=== PATIENT | female | born 1995 | race Caucasian/White ===

== ENCOUNTER 2017-07-18 18:05 | Emergency (ER) | payer OTHER ==
[~2017-07-18] VITALS: Ht 160 cm; Wt 68.0 kg
[2017-07-18 18:22] VITALS: Ht 160 cm; Wt 68.0 kg
[2017-07-18] MEDS ORDERED: SODIUM CHLORIDE 0.9% 1000ML 1,000 ML IV STA (18:35)
--- NOTE | 2017-07-18 18:38 | EMERGENCY ROOM VISIT NOTE ---
History Report prepared by Jhony: Harman Lofton Under the Supervision of: Dr. Rangel Kwong M.D. First contact with patient: 18:28 Chief Complaint: ABDOMINAL PAIN Stated Complaint: LOWER RT QUAD/PELVIC PAIN History of Present Illness The patient is a 22 year old female who presents to the Emergency Room with complaints of worsening stabbing right sided abdominal pain that started 3 days ago. The patient saw her PCP yesterday. She complains of a cough. She denies fevers, chills, congestion, diarrhea, hematuria, dysuria, and nausea. Of note, her LNMP was several months ago and currently has an IUD. Source of History: patient Onset: 3 days ago Position: abdomen (RLQ) Quality: stabbing Timing: worsening Associated Symptoms: + cough, No fevers, No chills, No diarrhea, No urinary symptoms Note: Patient denies congestion. Review of Systems See HPI for pertinent positives and negatives. A total of ten systems were reviewed and were otherwise negative. Social History Smoking Status: Never Smoker Marital Status: in relationship Occupation Status: student Current/Historical Medications No Active Prescriptions or Reported Meds Allergies Coded Allergies: Penicillins (Verified Allergy, Intermediate, Rash, 07/18/17) Physical Exam Vital Signs Date Time Temp Pulse Resp B/P (MAP) Pulse Ox O2 Delivery O2 Flow Rate FiO2 07/18/17 22:05 72 14 120/54 100 Room Air 07/18/17 19:16 70 07/18/17 18:57 37.0 07/18/17 18:22 37.8 72 20 116/71 100 Room Air Physical Exam GENERAL: Awake, alert, well-appearing, in no distress HENT: Normocephalic, atraumatic. Oropharynx unremarkable. EYES: Normal conjunctiva. Sclera non-icteric. NECK: Supple. No nuchal rigidity. FROM. No JVD. RESPIRATORY: Clear to auscultation. CARDIAC: Regular rate, normal rhythm. Extremities warm and well perfused. Pulses equal. ABDOMEN: Soft, non-distended. Mild right upper quadrant and lower quadrant tenderness. No rebound or guarding. No masses. No peritoneal signs. RECTAL: Deferred. MUSCULOSKELETAL: Chest examination reveals no tenderness. The back is symmetrical on inspection without obvious abnormality. There is no CVA tenderness to palpation. No joint edema. LOWER EXTREMITIES: Calves are equal size bilaterally and non-tender. No edema. No discoloration. NEURO: Normal sensorium. No sensory or motor deficits noted. SKIN: No rash or jaundice noted. Medical Decision & Procedures Laboratory Results 07/18/17 18:55 Red Blood Count 4.58, Mean Corpuscular Volume 92.8, Mean Corpuscular Hemoglobin 31.9, Mean Corpuscular Hemoglobin Concent 34.4, Mean Platelet Volume 9.3, Neutrophils (%) (Auto) 63.4, Lymphocytes (%) (Auto) 30.3, Monocytes (%) (Auto) 5.0, Eosinophils (%) (Auto) 0.7, Basophils (%) (Auto) 0.3, Neutrophils # (Auto) 4.81, Lymphocytes # (Auto) 2.30, Monocytes # (Auto) 0.38, Eosinophils # (Auto) 0.05, Basophils # (Auto) 0.02 07/18/17 18:55 Test 07/18/17 18:55 White Blood Count 7.58 K/uL (4.8-10.8) Red Blood Count 4.58 M/uL (4.2-5.4) Hemoglobin 14.6 g/dL (12.0-16.0) Hematocrit 42.5 % (37-47) Mean Corpuscular Volume 92.8 fL (80-100) Mean Corpuscular Hemoglobin 31.9 pg (25-34) Mean Corpuscular Hemoglobin Concent 34.4 g/dl (32-36) Platelet Count 242 K/uL (130-400) Mean Platelet Volume 9.3 fL (7.4-10.4) Neutrophils (%) (Auto) 63.4 % Lymphocytes (%) (Auto) 30.3 % Monocytes (%) (Auto) 5.0 % Eosinophils (%) (Auto) 0.7 % Basophils (%) (Auto) 0.3 % Neutrophils # (Auto) 4.81 K/uL (1.4-6.5) Lymphocytes # (Auto) 2.30 K/uL (1.2-3.4) Monocytes # (Auto) 0.38 K/uL (0.11-0.59) Eosinophils # (Auto) 0.05 K/uL (0-0.5) Basophils # (Auto) 0.02 K/uL (0-0.2) RDW Standard Deviation 42.6 fL (36.4-46.3) RDW Coefficient of Variation 12.7 % (11.5-14.5) Immature Granulocyte % (Auto) 0.3 % Immature Granulocyte # (Auto) 0.02 K/uL (0.00-0.02) Urine Color YELLOW Urine Appearance CLEAR (CLEAR) Urine pH 7.5 (4.5-7.5) Urine Specific [place] 1.012 (1.000-1.030) Urine Protein NEG (NEG) Urine Glucose (UA) NEG (NEG) Urine Ketones NEG (NEG) Urine Occult Blood NEG (NEG) Urine Nitrite NEG (NEG) Urine Bilirubin NEG (NEG) Urine Urobilinogen NEG (NEG) Urine Leukocyte Esterase TRACE (NEG) Urine WBC (Auto) 1-5 /hpf (0-5) Urine RBC (Auto) 0-4 /hpf (0-4) Urine Hyaline Casts (Auto) 0 /lpf (0-5) Urine Epithelial Cells (Auto) 20-30 /lpf (0-5) Urine Bacteria (Auto) NEG (NEG) Urine Test NEG (NEG) Anion Gap 4.0 mmol/L (3-11) Est Creatinine Clear Calc Drug Dose 115.4 ml/min Estimated GFR () 139.7 Estimated GFR (Non- 120.6 BUN/Creatinine Ratio 14.2 (10-20) Calcium Level 8.9 mg/dl (8.5-10.1) Total Bilirubin 0.3 mg/dl (0.2-1) Direct Bilirubin < 0.1 mg/dl (0-0.2) Aspartate Amino Transf (AST/SGOT) 23 U/L (15-37) Alanine Aminotransferase (ALT/SGPT) 21 U/L (12-78) Alkaline Phosphatase 97 U/L (45-117) Total Protein 7.4 gm/dl (6.4-8.2) Albumin 4.0 gm/dl (3.4-5.0) Lipase 188 U/L (73-393) Laboratory results reviewed by me Medications Administered Medications (Trade) Dose Ordered Sig/Bernadine Route Start Time Stop Time Status Last Admin Dose Admin Sodium Chloride 1,000 ml @ 999 mls/hr Q1H1M STAT IV 07/18/17 18:35 07/18/17 19:35 DC 1/31/18 18:56 999 MLS/HR Ketorolac Tromethamine (Toradol Inj) 15 mg NOW STAT IV 07/18/17 22:09 07/18/17 22:10 DC 07/18/17 22:09 15 MG Procedure Gallbladder US: No pericholecystic fluid. ED Course 1827: The patient was evaluated in room A11B. A complete history and physical exam was performed. Medical Decision I reviewed the patient's past medical history, medications, and the nursing notes as described above. The patient's presentation and history were concerning for etiologies such as appendicitis, ovarian cyst/torsion, ectopic , diverticulitis, PUD, biliary pathology, UTI, pancreatitis, obstruction, mesenteric ischemia, aortic pathology, infections, inflammatory bowel disease, renal colic, as well as others were entertained. The patient is a 22-year-old woman who presents to emergency department with right lower quadrant pain for the past 3 days per hpi. Of note, the patient was seen by her primary care doctor yesterday and had a pelvic exam that was unremarkable and was told to go to the emergency department if her symptoms worsened or did not improve. The patient denies any nausea vomiting, fevers or chills, difficulty eating, denies urinary symptoms. On arrival the patient is in no acute distress, afebrile with stable vital signs. She has mild right upper quadrant and right lower quadrant tenderness without any peritoneal signs. Bedside ultrasound negative for gallstones. No pericholecystic fluid. No gross ductal dilatation. Labs unremarkable including WBC and CMP within normal limits. Pelvic US unremarkable with trace free fluid likely physiologic. Appendix US non-diagnostic. Patient reassessed and still with pain. CT abd/pel negative for acute findings. Unclear etiology for patient's symptoms but unlikely to have emergent process given reassuring w/u. Plan for [facility] f/u and possible [employer] referral. Findings and plan for follow-up reviewed with patient. Patient agreeable and d/c'd per discharge instructions. Medication Reconcilliation Current Medication List: was personally reviewed by me Blood Pressure Screening Patient's blood pressure: Normal blood pressure Blood pressure disposition: Did not require urgent referral Impression Primary Impression: Right lower quadrant abdominal pain Scribe Attestation The scribe's documentation has been prepared under my direction and personally reviewed by me in its entirety. I confirm that the note above accurately reflects all work, treatment, procedures, and medical decision making performed by me. Departure Information Dispostion Home / Self-Care Prescriptions No Active Prescriptions or Reported Meds Referrals No Doctor, Assigned (PCP) Patient Instructions ED Abdominal Pain Unkn Cause, My [facility] Additional Instructions Please follow up with [facility] in the next 1-3 days for re-evaluation. The cause of your symptoms is unclear at this time. Otherwise, your exam, lab results, ultrasound of your gallbladder and pelvis, and CT scan of your abdomen and pelvis did not show signs of an emergent condition at this time. Acetaminophen or ibuprofen for pain as needed. Drink plenty of fluids to ensure hydration. Return to the emergency department for worsening symptoms as described in the accompanying instructions.
[2017-07-18 18:57] VITALS: TEMP 37
[2017-07-18 19:29] LABS: ALT/SGPT 21 U/L (12-78); AST/SGOT 23 U/L (15-37); BLOOD UREA NITROGEN 10 mg/dl (7-18); CALCIUM 8.9 mg/dl (8.5-10.1); CARBON DIOXIDE 29 mmol/L (21-32); CREATININE 0.72 mg/dl (0.60-1.20); GLUCOSE 75 mg/dl (70-99); LIPASE 188 U/L (73-393); POTASSIUM 3.7 mmol/L (3.5-5.1); SODIUM 136 mmol/L (136-145)
[2017-07-18 19:31] LABS: ALKALINE PHOSPHATASE 97 U/L (45-117); TOTAL PROTEIN 7.4 gm/dl (6.4-8.2)
[2017-07-18 19:32] LABS: BASO % 0.3 %; BASO ABS # 0.02 K/uL (0-0.2); EOS % 0.7 %; EOS ABS # 0.05 K/uL (0-0.5); HEMATOCRIT 42.5 % (37-47); HEMOGLOBIN 14.6 g/dL (12.0-16.0); IG# 0.02 K/uL (0.00-0.02); LYMPH % 30.3 %; MEAN CELL VOLUME 92.8 fL (80-100); MEAN CORPUSCULAR HEMOGLOBIN 31.9 pg (25-34); MEAN CORPUSCULAR HGB CONC 34.4 g/dl (32-36); MEAN PLATELET VOLUME 9.3 fL (7.4-10.4); MONO ABS # 0.38 K/uL (0.11-0.59); NEUT % 63.4 %; NEUT ABS # 4.81 K/uL (1.4-6.5); PLATELET COUNT 242 K/uL (130-400); RED CELL DISTRIBUTION WIDTH CV 12.7 % (11.5-14.5); RED CELL DISTRIBUTION WIDTH SD 42.6 fL (36.4-46.3); WHITE BLOOD COUNT 7.58 K/uL (4.8-10.8)
--- NOTE | 2017-07-18 21:08 | DIAGNOSTIC IMAGING REPORT ---
APPENDIX ULTRASOUND HISTORY: Right lower quadrant abdominal pain. COMPARISON: None. FINDINGS: Transabdominal scanning of the right lower quadrant was performed. The appendix was not identified. There are no fluid collections or masses within the right lower quadrant. IMPRESSION: The appendix was not identified. Electronically signed by: Martín Bowens M.D. 07/18/2017 9:06 PM Dictated Date/Time: 07/18/2017 9:06 PM
--- NOTE | 2017-07-18 21:09 | DIAGNOSTIC IMAGING REPORT ---
PELVIC ULTRASOUND, TRANSABDOMINAL AND TRANSVAGINAL HISTORY: Right lower quadrant abdominal pain. COMPARISON: None. FINDINGS: Uterus: Unremarkable. Endometrial stripe: 3 mm in thickness. The intrauterine device is in good position. Right ovary: Normal in size and demonstrates normal color flow. Left ovary: Normal in size and demonstrates normal color flow. Miscellaneous:Trace pelvic free fluid. IMPRESSION: 1. Normal uterus and ovaries. 2. Trace pelvic free fluid, likely physiologic. 3. The intrauterine device is in good position. Electronically signed by: Martín Bowens M.D. 07/18/2017 9:08 PM Dictated Date/Time: 07/18/2017 9:07 PM
[2017-07-18] MEDS ORDERED: OPTIRAY 320 IV PRN (21:30)
--- NOTE | 2017-07-18 21:59 | DIAGNOSTIC IMAGING REPORT ---
ABDOMEN AND PELVIS CT WITH IV CONTRAST CT DOSE: 354.09 mGy.cm HISTORY: Right lower quadrant abdominal pain. TECHNIQUE: Multiaxial CT images of the abdomen and pelvis were performed following the use of intravenous contrast. A dose lowering technique was utilized adhering to the principles of ALARA. COMPARISON STUDY: None. FINDINGS: The lung bases are clear. No pneumoperitoneum. No pneumatosis. No fractures within the visualized osseous structures. Bilateral breast augmentation is noted. The liver, pancreas, adrenal glands, and kidneys are unremarkable. The gallbladder is contracted and not well evaluated but is likely unremarkable. There or subcentimeter hypodense lesions at the splenic dome and posterior aspect of the spleen. These are of doubtful clinical significance. The intrauterine device is in good position. The bladder and ovaries are unremarkable. Trace pelvic free fluid is likely physiologic. No retroperitoneal lymphadenopathy. No bowel wall thickening or obstruction. The appendix is identified within the right lower quadrant. The appendix is normal in caliber. IMPRESSION: 1. Normal appendix. 2. No bowel wall thickening or obstruction. 3. Trace pelvic free fluid. This is likely physiologic. 4. The intrauterine device appears to be in good position. 5. Contracted gallbladder Electronically signed by: Martín Bowens M.D. 07/18/2017 9:58 PM Dictated Date/Time: 07/18/2017 9:52 PM
[2017-07-18 22:05] VITALS: BP 120/54; PULSE 72; O2SAT 100
[2017-07-18] MEDS ORDERED: KETOROLAC TROMETHAMINE 30 MG/ML VIAL IV STA (22:09)
== END 2017-07-18 22:25 | disposition home or self-care (01) ==
LOC: C.EDB 18:07 → C.EDA 22:25
DX: R10.31 Right lower quadrant pain (principal)